=== PATIENT | female | born 1940 | race Caucasian/White ===

== ENCOUNTER 2017-11-21 08:42 | Emergency (ER) | payer MEDICARE, BC ==
--- NOTE | 2017-11-21 09:15 | ED ---
GI/ HPI - HPI Summary HPI Summary: This is Keturah Miranda documenting for attending Dr. Katty Mcnamara MD. The patient is a 77 y/o F presenting to [facility] c/o bright red blood in stool this morning starting at 02:00. The blood was present in the form of clots. The only pain associated with the bleeding is mild LLQ pain. She has tested her stool with a cologuard kit, which had negative results. She denies hematuria, nausea, and vomiting. She last had a BM at 07:30. She denies use of blood thinners. She has not had diverticulitis in the past. He has hx of osteoarthritis, which she does not take medication for. - History of Current Complaint Chief Complaint: EDGIBleed Time Seen by Provider: 11/21/17 09:01 Stated Complaint: BLOODING URINE Hx Obtained From: Patient Onset/Duration: Started Hours Ago - at 02:00 this morning, Still Present Timing: Lasting Hours Severity: Moderate Current Severity: Moderate Pain Intensity: 0 Location of Pain: LLQ Associated Signs and Symptoms: Positive: Bright Red Blood w/Stool - in form of clots, Abdominal Pain - LLQ. Negative: Nausea, Vomiting, Hematuria Aggravating Factor(s): Nothing Alleviating Factor(s): Bowel Movements - Allergy/Home Medications Allergies/Adverse Reactions: Allergies Allergy/AdvReac Type Severity Reaction Status Date / Time acetaminophen Allergy See Comment Verified 11/21/17 09:27 aspirin Allergy Palpitation Verified 11/21/17 09:27 s Penicillins Allergy Hives Verified 11/21/17 09:27 Sulfa (Sulfonamide Allergy Swelling Verified 11/21/17 09:27 Antibiotics) PMH/Surg Hx/FS Hx/Imm Hx Endocrine/Hematology History: Denies: Hx Diabetes Cardiovascular History: Denies: Hx Hypertension, Hx Pacemaker/ICD History: Denies: Hx Renal Disease Musculoskeletal History: Reports: Other Musculoskeletal History - Osteoarthritis Denies: Hx Scoliosis Sensory History: Denies: Hx Hearing Aid Neurological History: Reports: Hx Headaches Denies: Other Neuro Impairments/Disorders Psychiatric History: Denies: Hx Panic Disorder - Surgical History Surgery Procedure, Year, and Place: HYSTERECTOMY 1970. CHOLEYSYSTECOMY 1999 Infectious Disease History: No Infectious Disease History: Denies: History Other Infectious Disease, Traveled Outside the [place] in Last 30 Days - Family History Known Family History: Positive: Cardiac Disease - father, Other - brother with pancreatic cancer - Social History Alcohol Use: None Substance Use Type: Reports: None Smoking Status (MU): Never Smoked Tobacco Review of Systems Positive: Abdominal Pain - LLQ, Other - bright red blood in stool. Negative: Vomiting, Nausea Negative: hematuria All Other Systems Reviewed And Are Negative: Yes Physical Exam - Summary Physical Exam Summary: GENERAL: Patient is a well developed and nourished female who is lying comfortable in the stretcher. Patient is not in any acute respiratory distress. HEAD AND FACE: Normocephalic EYES: PERRLA, EOMI x 2. EARS: Hearing grossly intact. MOUTH: Oropharynx within normal limits. NECK: Supple, trachea is midline, no adenopathy, no JVD, no carotid bruit. CHEST: Symmetric, no tenderness at palpation LUNGS: Clear to auscultation bilaterally. No wheezing or crackles. CVS: Regular rate and rhythm, S1 and S2 present, no murmurs or gallops appreciated. ABDOMEN: Soft. Tender to palpation in the LLQ. Bowel sounds are normal. No abdominal abnormal pulsations. RECTAL EXAM: No visible hemorrhoids. Dark red stool present per rectal. EXTREMITIES: Full ROM in all major joints, no edema, no cyanosis or clubbing. NEURO: Alert and oriented x 3. No acute neurological deficits. Speech is normal and follows commands. SKIN: Dry and warm Triage Information Reviewed: Yes Vital Signs On Initial Exam: Initial Vitals Temp Pulse Resp BP Pulse Ox 97.1 F 86 16 165/81 97 11/21/17 08:43 11/21/17 08:43 11/21/17 08:43 11/21/17 08:43 11/21/17 08:43 Vital Signs Reviewed: Yes Diagnostics - Vital Signs Vital Signs Temp Pulse Resp BP Pulse Ox 11/21/17 08:43 97.1 F 86 16 165/81 97 - Laboratory Result Diagrams: 11/21/17 09:22 11/21/17 09:22 Lab Statement: Any lab studies that have been ordered have been reviewed, and results considered in the medical decision making process. - CT Abd/Pel CT Interpretation: Positive (See Comments) - 1. The constellation of findings is most consistent with mild acute diverticulitis at the proximal sigmoid colon. Negative for resulting bowel obstruction or perienteric abscess. Follow- up after therapy warranted to assess for resolution and exclude an underlying neoplastic lesion. ED physician has reviewed this report. CT Interpretation Completed By: Radiologist Re-Evaluation - Re-Evaluation First Eval Re-Evaluation Time: 12:40 Change: Unchanged Comment: I spoke with the pt concerning lab results of positive C-diff and CT results of diverticulitis. Second Eval Re-Evaluation Time: 12:55 Change: Unchanged Comment: I spoke with the pt about being admitted to [facility]. I spoke with Dr. Samaniego who overlooked the pt's symptoms and workup, but said that the patient would be admitted for observation. She understands the need for admission but refuses to be admitted because she wants to be an inpatient. We discussed the concerns, but the pt is adamant that she doesn't want to stay. She promises to return to the ED if her symptoms worsen. She will be prescribed Flagil and Cipro and will follow up with her PCP. Pt is agreeable with this plan. GIGU Course/Dx - Course Course Of Treatment: The patient is a 77 y/o F presenting to [facility] c/o bright red blood in stool in the form of clots starting this morning at 02:00. She reports mild LLQ pain but no other associated pain. She denies hematuria, nausea , and vomiting. She does not use blood thinners and has not had diverticulitis in the past. Medications reviewed. Allergies noted. In the ED course, the pt was administered IV Omnipaque Contrast 98 ml, IV Protonix 40mg, IV Ns 0.9% 1000mls @ 1000mls/hr. Upon rectal exam, there is dark red stool present per rectal. Bloodwork shows low lymphocytes but white counts are normal. UA is negative. She is positive for C-difficile. CT Abd/Pel reveals acute diverticulitis. I offered the patient admission, however, patient asked me to find out if she would be observation versus inpatient because of insurnace issue. I spoke with the hospitalist, who overlooked her symptoms and workup and states that she would be here for observation but would be willing to admit her if she chooses. Patient understands the need for admission but denies admission because she wants to be an inpatient. Since her white count is normal, H&H is stable, and she is hemodynamically stable and well appearing, the pt will be discharged home with Cipro and Flagil prescription. She will follow up with her PCP and GI. Return precautions discussed. Pt is agreeable with this plan. - Diagnoses Provider Diagnoses: C. difficile colitis, Diverticulitis - Physician Notifications Discussed Care Of Patient With: Manoj Samaniego Time Discussed With Above Provider: 12:50 Instructed by Provider To: Other - Pt is able to fully admitted for observation if she is willing to be admitted. Discharge - Sign-Out/Discharge Documenting (check all that apply): Patient Departure - Pt will be admitted to [facility] for further care by Dr. Samaniego. - Discharge Plan Condition: Stable Disposition: ADMITTED TO [facility] Prescriptions: Ciprofloxacin TAB* [Cipro 500 MG TAB*] 500 mg PO BID 10 Days #20 tab metroNIDAZOLE [Flagyl] 500 mg PO TID 10 Days #30 tablet Ondansetron [Zofran Odt] 4 mg PO TID #12 tab.rapdis Patient Education Materials: Diverticulitis (ED), C Diff (Clostridium Difficile ) Infection (ED) Referrals: Jude Cheney MD [Primary Care Provider] - 2 Days Carisa Broussard DO [Doctor of Osteopathy] - 2 Days Additional Instructions: Please take medications as prescribed. Follow up with your primary care provider in 2-3 days. Follow up with Dr. Broussard, gastroenterology in 2-3 days. Return to the emergency department for any new or worsening symptoms. - Billing Disposition and Condition Condition: STABLE Disposition: Admitted to [facility]
[2017-11-21] MEDS ORDERED: Pantoprazole IV* 40 MG IV ONE (09:16)
[2017-11-21] MEDS ORDERED: NS 0.9% 1000 ML* 1,000 ML IV ONE (09:16)
--- OUTSIDE RECORDS SUMMARY | 2017-11-21 09:33 | XMS REPORT ---
:1940 External Reference #:[id number] Author Organization [employer] Address [address] [place] [address] [place] [address] Phone [phone] Care Team Providers Name Role Phone Jude Cheney MD Primary Care Physician Unavailable Payers Type Date Identification Numbers Payment Provider Subscriber Medicare Primary Effective: Policy Number: Medicare Sasha Marte 2006 [id number] PayID: [id number] [address] [place] [address] Medigap Part B Effective: 2012 Policy Number: [facility] Sasha Marte [id number] PayID: [id number] [address] [address] [place] [address] Medigap Part B Expires: 2012 Policy Number: [employer] Sasha Marte [id number] PayID: [id number] [address] [address] [place] [address] Problems Date Description Provider Status Onset: 10/26/2017 Localized, primary osteoarthritis of the Ines Arvizu M.D. Active pelvic region and thigh Family History Date Family Member(s) Problem(s) Comments General Heart Disease General Hypertension General Cancer General Lupus Social History Type Date Description Comments Lives With Spouse Occupation Retired ETOH Use Denies alcohol use Smoking Patient has never smoked Exercise Type/Frequency Exercises sporadically Allergies, Adverse Reactions, Alerts Date Description Reaction Status Severity Comments 05/20/2012 Adhesives sensitive skin red jose a active 05/20/2012 Sulfa rapid heart rate active 05/20/2012 Aspirin rapid heart rate active 05/20/2012 Penicillin hives active 10/26/2017 Tylenol active Medications Medication Date Status Form Strength Qnty SIG Indications Ordering Provider Meloxicam 10/27/19 Active Tablets 15mg 30tabs 1 by M25.552 Ines 18 mouth Janet Arvizu every day Coq10 With Active Capsules 100mg 1 by Unknown Fish Oil 00 mouth every day Medications Administered in Office Medication Date Status Form Strength Qnty SIG Indications Ordering Provider Depomedrol Administered Injection Ines 40MG 018 Janet Arvizu Vital Signs Date Vital Result Comment 10/30/2017 Height 61.5 inches 5'1.50" Weight 196.00 lb BP Systolic 136 mmHg BP Diastolic 72 mmHg Body Temperature 98.6 F BMI (Body Mass Index) 36.4 kg/m2 10/26/2017 Height 61.5 inches 5'1.50" Weight 196.00 lb Heart Rate 64 /min BP Systolic 160 mmHg BP Diastolic 84 mmHg BMI (Body Mass Index) 36.4 kg/m2 Results Test Date Test Result H/L Range Note Laboratory test finding 10/26/2017 Lyme Disease Serology Negative Negative 1 1 No evidence of antibodies to B. burgdorferi detected. False negative results may occur in recently infected patients (<=2 weeks) due to low or undetectable antibody levels to B. burgdorferi. If recent exposure is suspected, a second sample should be collected and tested in 2-4 weeks. Test Performed by: [facility] [address] [place] [address] Procedures Date CPT Code Description Status 05/26/2012 13817 ECHO Stress Test Incl Perf Contiuous ekg Monitoring Completed W/Phys Superv 05/20/2012 63348 EKG Tracing & Interpretation Completed Encounters Type Date Location Provider CPT E/M Dx Office Visit 10/26/2017 [facility] Ines Arvizu M.D. 11748 M25.552 2:00p [facility] [place] M16.12 Office Visit 05/31/2012 1:15p [facility], [address] 238.1 C.Beatriz Gonzales Office Visit 05/20/2012 1:00p [facility] [address] 794.31 Jayesh Gonzales 272.0 Office Visit 05/17/2012 3:00p [facility] [address] 238.1 [place] Gonzales Plan of Care Future Appointment(s):11/11/2017 8:30 am - Ines Arvizu M.D. at [facility]
--- OUTSIDE RECORDS SUMMARY | 2017-11-21 09:33 | XMS REPORT ---
:1940 External Reference #:[id number] Author Organization [employer] Address [address] [place] [address] [place] [address] Phone [phone] Care Team Providers Name Role Phone Jude Cheney MD Primary Care Physician Unavailable Payers Type Date Identification Numbers Payment Provider Subscriber Medicare Primary Effective: Policy Number: Medicare Sasha Marte 2006 [id number] PayID: [id number] [address] [place] [address] Medigap Part B Effective: 2012 Policy Number: [facility] Sasha Marte [id number] PayID: [id number] [address] [address] [place] [address] Medigap Part B Expires: 2012 Policy Number: [employer] Sasha aMrte [id number] PayID: [id number] [address] [address] [place] [address] Problems Date Description Provider Status Onset: 10/26/2017 Localized, primary osteoarthritis of the Ines Arvizu M.D. Active pelvic region and thigh Family History Date Family Member(s) Problem(s) Comments General Heart Disease General Hypertension General Cancer General Lupus Social History Type Date Description Comments Marital Status Lives With Spouse Occupation Retired ETOH Use [...] Arvizu Vital Signs Date Vital Result Comment 11/11/2017 Height 61.5 inches 5'1.50" Heart Rate 72 /min BP Systolic Sitting 142 mmHg BP Diastolic Sitting 78 mmHg Respiratory Rate 16 /min Body Temperature 98.3 F Pain Level 7 intermittent 10/30/2017 Height 61.5 inches 5'1.50" Weight 196.00 [...] tested in 2-4 weeks. Test Performed by: [facility] [address] [place] [address] Procedures Date CPT Code Description Status 05/26/2012 46383 ECHO Stress Test Incl Perf Contiuous ekg Monitoring Completed W/Phys Superv 05/20/2012 77403 EKG Tracing & Interpretation Completed Encounters Type Date Location Provider CPT E/M Dx Office Visit 10/26/2017 [facility] Ines Arvizu M.D. 71652 M25.552 2:00p [facility] [place] M16.12 Office Visit 05/31/2012 1:15p [facility], [address] 238.1 CKatie Gonzales Office Visit 05/20/2012 1:00p [facility], [address] 794.31 Jayesh Gonzales 272.0 Office Visit 05/17/2012 3:00p [facility], [address] 238.1 [place] Gonzales Plan of Care Future Appointment(s):12/23/2017 8:15 am - Ines Arvizu M.D. at [facility]/11/2017 - Ines Arvizu M.D.M25.552 Pain in left hipNew Therapy:Physical TherapyFollow up:Follow up: 6 cakdgP93.12 Unilateral primary osteoarthritis, left hipG57.02 Lesion of sciatic nerve, left lower limb
--- OUTSIDE RECORDS SUMMARY | 2017-11-21 09:33 | XMS REPORT ---
:1940 External Reference #:[id number] Author Organization [employer] Address [address] [place] [address] Phone [phone] Care Team Providers Name Role Phone Jude Cheney MD Primary Care Physician Unavailable Payers Type Date Identification Numbers Payment Provider Subscriber Medicare Primary Effective: Policy Number: Medicare Sasha Marte 2005 [id number] PayID: [id number] [address] [place] [address] Medigap Part B Effective: 2012 Policy Number: [facility] Sasha Marte [id number] PayID: [id number] [address] [address] [place] [address] Medigap Part B Expires: 2012 Policy Number: [employer] Sasha Marte [id number] PayID: [id number] [address] [address] [place] [address] Problems Date Description Provider Status Onset: 10/26/2017 [...] 15mg 30tabs 1 by M25.552 Ines 18 lizette Arvizu M.D. every day Coq10 With Active Capsules 100mg 1 by Unknown Fish Oil 00 mouth every day Vital Signs Date Vital Result Comment 10/26/2017 Height 61.5 inches 5'1.50" Weight 196.00 lb Heart Rate 64 /min BP Systolic 160 mmHg BP Diastolic 84 mmHg BMI (Body Mass Index) 36.4 kg/m2 Results Description No Information Procedures Date CPT Code Description Status 05/26/2012 14316 ECHO Stress Test Incl Perf Contiuous ekg Monitoring Completed W/Phys Superv 05/20/2012 61135 EKG Tracing & Interpretation Completed Encounters Type Date Location Provider CPT E/M Dx Office Visit 10/26/2017 [facility] Ines Arvizu M.D. 95050 M25.552 2:00p [facility] [place] M16.12 Office Visit 05/31/2012 1:15p [facility], [address] 238.1 Kenia Gonzales Office Visit 05/20/2012 1:00p [facility], [address] 794.31 Jayehs Gonzales 272.0 Office Visit 05/17/2012 3:00p [facility], [address] 238.1 Kenia Gonzales Plan of Care Future Appointment(s):10/30/2017 3:45 pm - Ines Arvizu M.D. at [facility]/26/2017 - Ines Arvizu M.D.M25.552 Pain in left hipNew Medication:Meloxicam 15 mgNew Labs:Lyme Disease SerologyFollow up:Follow up: 3:45 for L hip inj under US with Dr. ArvizuM16.12 Unilateral primary osteoarthritis, left hip
[2017-11-21 09:34] LABS: ABS Basophils 0 10^3/ul (0-0.2); ABS Eosinophils 0.1 10^3/ul (0-0.6); ABS Lymphocytes 1.1 10^3/ul (1.0-4.8); ABS Monocytes 0.7 10^3/ul (0-0.8); ABS Neutrophils 5.7 10^3/ul (1.5-7.7); ABS Nucleated RBC 0 10^3/ul; Eosinophil % 1.5 % (0-6); Hematocrit 42 % (35-47); Lymphocyte % 14.1 % (25-47); Mean Corpuscular HGB Conc 33 g/dl (31-36); Mean Corpuscular Hemoglobin 29 pg (27-31); Mean Corpuscular Volume 87 fL (80-97); Nucleated Red Blood Cells % 0.1; Platelet Count 231 10^3/ul (150-450); Red Blood Count 4.85 10^6/ul (4.00-5.40); Red Cell Distribution Width 15 % (10.5-15); White Blood Count 7.5 10^3/ul (3.5-10.8)
[2017-11-21 09:43] LABS: INR 0.99 (0.77-1.02)
[2017-11-21 09:51] LABS: EGFR Non-African American 75.1 (>60)
[2017-11-21 10:45] LABS: Urine Appearance Clear; Urine Blood Negative (Negative); Urine Color Yellow; Urine Ketones Negative (Negative); Urine Protein Negative (Negative); Urine Red Blood Cell Trace(0-2/hpf) (Absent); Urine Specific Gravity 1.009 (1.010-1.030); Urine Urobilinogen Negative (Negative); Urine White Blood Cell 1+(6-10/hpf) (Absent)
[2017-11-21] MEDS ORDERED: Iohexol 300* (CONTRAST) 10 ML SDV IV ONE (11:29)
--- NOTE | 2017-11-21 12:35 | RAD ---
INDICATION: Blood in stool. LEFT lower quadrant pain. COMPARISON: August 10, 2013 ultrasound. TECHNIQUE: Multidetector CT images were obtained from the lung bases to the ischial tuberosities with 98 mL Omnipaque 300 IV and oral contrast. Multiplanar reformation. REPORT: Minimal bibasilar subsegmental atelectasis. Negative for pleural effusions. Upper normal heart size. Negative for pericardial effusion. Post cholecystectomy. Negative for biliary dilatation. Unremarkable liver, pancreas, spleen. Unremarkable upper GI and small bowel. Unremarkable diminutive appendix. Mild colonic diverticulosis. Mild focal mural thickening of the antimesenteric margin of the proximal sigmoid colon with mild perienteric inflammatory change most suggestive of acute diverticulitis. Negative for resulting bowel obstruction. Negative for perienteric abscess. Negative for ascites, free air, hernias. Thickening of the bilateral adrenal glands most consistent with hyperplasia. 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 Symmetric nephrograms and pyelograms. 0.9 cm hypodense cortical lesion at the midpole the LEFT kidney is too small to accurately characterize with contrast-enhanced CT. Parapelvic cysts at the RIGHT kidney. Unremarkable nondilated ureters and distended urinary bladder. Post hysterectomy. Unremarkable adnexal regions. Negative for lymphadenopathy. Normal diameter abdominal aorta and iliac arteries with mild calcific plaque. Physiologic distention of the IVC. Negative for suspicious osseous lesions or fracture. Lumbar sacral spine degenerative spondylosis and facet joint osteoarthritis. IMPRESSION: #. The constellation of findings is most consistent with mild acute diverticulitis at the proximal sigmoid colon. Negative for resulting bowel obstruction or perienteric abscess. Follow-up after therapy warranted to assess for resolution and exclude an underlying neoplastic lesion.
[2017-11-21] MEDS ORDERED: metroNIDAZOLE TAB* 250 MG PO ONE (12:58)
[2017-11-21] MEDS ORDERED: Ciprofloxacin TAB* 500 MG PO ONE (12:58)
[2017-11-21] MEDS ORDERED: Ondansetron ODT TAB* 4 MG PO ONE (12:59)
[2017-11-21 13:24] VITALS: BP 147/86
--- NOTE | 2017-11-22 13:42 | ED ---
Progress - Progress Note Progress Note: Patient's final stool cultures are positive for Clostridium difficile. Patient was diagnosed with this at discharge and treated with Flagyl. No change in treatment at this time. Re-Evaluation - Re-Evaluation First Eval Re-Evaluation Time: 12:40 Change: Unchanged Comment: I spoke with the pt concerning lab results of positive C-diff and CT results of diverticulitis. Second Eval Re-Evaluation Time: 12:55 Change: Unchanged Comment: I spoke with the pt about being admitted to [facility]. I spoke with Dr. Samaniego who overlooked the pt's symptoms and workup, but said that the patient would be admitted for observation. She understands the need for admission but refuses to be admitted because she wants to be an inpatient. We discussed the concerns, but the pt is adamant that she doesn't want to stay. She promises to return to the ED if her symptoms worsen. She will be prescribed Flagil and Cipro and will follow up with her PCP. Pt is agreeable with this plan. Course/Dx - Course Course Of Treatment: The patient is a 77 y/o F presenting to [facility] c/o bright red blood in stool in the form of clots starting this morning at 02:00. She reports mild LLQ pain but no other associated pain. She denies hematuria, nausea , and vomiting. She does not use blood thinners and has not had diverticulitis in the past. Medications reviewed. Allergies noted. In the ED course, the pt was administered IV Omnipaque Contrast 98 ml, IV Protonix 40mg, IV Ns 0.9% 1000mls @ 1000mls/hr. Upon rectal exam, there is dark red stool present per rectal. Bloodwork shows low lymphocytes but white counts are normal. UA is negative. She is positive for C-difficile. CT Abd/Pel reveals acute diverticulitis. I offered the patient admission, however, patient asked me to find out if she would be observation versus inpatient because of insurnace issue. I spoke with the hospitalist, who overlooked her symptoms and workup and states that she would be here for observation but would be willing to admit her if she chooses. Patient understands the need for admission but denies admission because she wants to be an inpatient. Since her white count is normal, H&H is stable, and she is hemodynamically stable and well appearing, the pt will be discharged home with Cipro and Flagil prescription. She will follow up with her PCP and GI. Return precautions discussed. Pt is agreeable with this plan. - Diagnoses Provider Diagnoses: C. difficile colitis, Diverticulitis - Provider Notifications Time Discussed With Above Provider: 12:50 Instructed by Provider To: Other - Pt is able to fully admitted for observation if she is willing to be admitted. Discharge - Sign-Out/Discharge Documenting (check all that apply): Post-Discharge Follow Up - Discharge Plan Condition: Stable Disposition: ADMITTED TO [facility] Prescriptions: Ciprofloxacin TAB* [Cipro 500 MG TAB*] 500 mg PO BID 10 Days #20 tab metroNIDAZOLE [Flagyl] 500 mg PO TID 10 Days #30 tablet Ondansetron [Zofran Odt] 4 mg PO TID #12 tab.rapdis Patient Education Materials: Diverticulitis (ED), C Diff (Clostridium Difficile ) Infection (ED) Referrals: Carisa Broussard DO [Doctor of Osteopathy] - 2 Days Jude Cheney MD [Primary Care Provider] - 2 Days Additional Instructions: Please take medications as prescribed. Follow up with your primary care provider in 2-3 days. Follow up with Dr. Broussard, gastroenterology in 2-3 days. Return to the emergency department for any new or worsening symptoms. - Billing Disposition and Condition Condition: STABLE Disposition: Admitted to [facility]
--- NOTE | 2017-11-23 16:32 | ED ---
Progress - Progress Note Progress Note: Patient's final stool cultures are positive for Clostridium difficile. Patient was diagnosed with this at discharge and treated with Flagyl. No change in treatment at this time. UPDATE: Patient's preliminary urine culture reveals greater than 100,000 enterococcus A Baugh. Patient was started on Cipro and Flagyl as mentioned above. Final results pending. Re-Evaluation - Re-Evaluation First Eval Re-Evaluation Time: 12:40 Change: Unchanged Comment: I spoke with the pt concerning lab results of positive C-diff and CT results of diverticulitis. Second Eval Re-Evaluation Time: 12:55 Change: Unchanged Comment: I spoke with the pt about being admitted to [facility]. I spoke with Dr. Samaniego who overlooked the pt's symptoms and workup, but said that the patient would be admitted for observation. She understands the need for admission but refuses to be admitted because she wants to be an inpatient. We discussed the concerns, but the pt is adamant that she doesn't want to stay. She promises to return to the ED if her symptoms worsen. She will be prescribed Flagil and Cipro and will follow up with her PCP. Pt is agreeable with this plan. Course/Dx - Course Course Of Treatment: The patient is a 77 y/o F presenting to [facility] c/o bright red blood in stool in the form of clots starting this morning at 02:00. She reports mild LLQ pain but no other associated pain. She denies hematuria, nausea , and vomiting. She does not use blood thinners and has not had diverticulitis in the past. Medications reviewed. Allergies noted. In the ED course, the pt was administered IV Omnipaque Contrast 98 ml, IV Protonix 40mg, IV Ns 0.9% 1000mls @ 1000mls/hr. Upon rectal exam, there is dark red stool present per rectal. Bloodwork shows low lymphocytes but white counts are normal. UA is negative. She is positive for C-difficile. CT Abd/Pel reveals acute diverticulitis. I offered the patient admission, however, patient asked me to find out if she would be observation versus inpatient because of insurnace issue. I spoke with the hospitalist, who overlooked her symptoms and workup and states that she would be here for observation but would be willing to admit her if she chooses. Patient understands the need for admission but denies admission because she wants to be an inpatient. Since her white count is normal, H&H is stable, and she is hemodynamically stable and well appearing, the pt will be discharged home with Cipro and Flagil prescription. She will follow up with her PCP and GI. Return precautions discussed. Pt is agreeable with this plan. - Diagnoses Provider Diagnoses: C. difficile colitis, Diverticulitis - Provider Notifications Time Discussed With Above Provider: 12:50 Instructed by Provider To: Other - Pt is able to fully admitted for observation if she is willing to be admitted. Discharge - Sign-Out/Discharge Documenting (check all that apply): Post-Discharge Follow Up - Discharge Plan Condition: Stable Disposition: ADMITTED TO [facility] Prescriptions: Ciprofloxacin TAB* [Cipro 500 MG TAB*] 500 mg PO BID 10 Days #20 tab metroNIDAZOLE [Flagyl] 500 mg PO TID 10 Days #30 tablet Ondansetron [Zofran Odt] 4 mg PO TID #12 tab.rapdis Patient Education Materials: Diverticulitis (ED), C Diff (Clostridium Difficile ) Infection (ED) Referrals: Carisa Broussard DO [Doctor of Osteopathy] - 2 Days Jude Cheney MD [Primary Care Provider] - 2 Days Additional Instructions: Please take medications as prescribed. Follow up with your primary care provider in 2-3 days. Follow up with Dr. Broussard, gastroenterology in 2-3 days. Return to the emergency department for any new or worsening symptoms. - Billing Disposition and Condition Condition: STABLE Disposition: Admitted to [facility]
--- NOTE | 2017-11-24 06:42 | PN ---
Progress Note - Progress Note Date of Service: 11/21/17 Note: Final urine culture growing >100,000 enterococcus faecalis. Pt. treated with Cipro which is susceptible. No change in treatment needed at this time.
== END 2017-11-21 13:22 | disposition short-term general hospital (02) ==
LOC: ED 08:42
DX: A04.72 Enterocolitis due to Clostridium difficile, not specified as recurrent (principal); K57.92 Diverticulitis of intestine, part unspecified, without perforation or abscess without bleeding; Z88.6 Allergy status to analgesic agent; Z88.0 Allergy status to penicillin; Z88.2 Allergy status to sulfonamides
CPT/HCPCS: 36415; 74177; 80053; 81003; 81015; 82272; 83605; 83690; 85025; 85610; 85730; 86850; 86900; 86901; 87045; 87046; 87077; 87086; 87186; 87493; 87899; 96360; 99283; A9270-GY; Q9967

== ENCOUNTER 2017-11-28 14:41 | Inpatient (IN) | payer MEDICARE, BC ==
--- NOTE | 2017-11-28 16:06 | ED ---
Abdominal Pain/Female - HPI Summary HPI Summary: This is sunita Machado documenting for attending Dr. Edilberto Gonzales This patient is a 77 year old F presenting to [facility] accompanied by her with a chief complaint of abd pain since 11/21/17, much worse starting 0200 this AM. She endorses N/V, davi stool, fever, severe pain in LLQ and RLQ. PMHx diverticulitis dx 1 week ago (11/21/17) during last ED visit. - History of Current Complaint Chief Complaint: EDAbdPain Stated Complaint: VOMITING/ABD PAIN Time Seen by Provider: 11/28/17 15:39 Hx Obtained From: Patient Onset/Duration: Lasting Weeks, Still Present Timing: Constant Severity Initially: Moderate Severity Currently: Moderate Pain Intensity: 7 Pain Scale Used: 0-10 Numeric Associated Signs and Symptoms: Positive: Constipation, Nausea, Vomiting. Negative: Fever Allergies/Adverse Reactions: Allergies Allergy/AdvReac Type Severity Reaction Status Date / Time acetaminophen Allergy See Comment Verified 11/28/17 16:58 aspirin Allergy Palpitation Verified 11/28/17 16:58 s Penicillins Allergy Hives Verified 11/28/17 16:58 Sulfa (Sulfonamide Allergy Swelling Verified 11/28/17 16:58 Antibiotics) PMH/Surg Hx/FS Hx/Imm Hx Endocrine/Hematology History: Denies: Hx Diabetes Cardiovascular History: Denies: Hx Hypertension, Hx Pacemaker/ICD History: Denies: Hx Renal Disease Musculoskeletal History: Reports: Other Musculoskeletal History - Osteoarthritis Denies: Hx Scoliosis Sensory History: Denies: Hx Hearing Aid Neurological History: Reports: Hx Headaches Denies: Other Neuro Impairments/Disorders Psychiatric History: Denies: Hx Panic Disorder - Surgical History Surgery Procedure, Year, and Place: HYSTERECTOMY 1970. CHOLEYSYSTECOMY 1999 Infectious Disease History: No Infectious Disease History: Denies: History Other Infectious Disease, Traveled Outside the [place] in Last 30 Days - Family History Known Family History: Positive: Cardiac Disease - father, Other - brother with pancreatic cancer - Social History Alcohol Use: None Substance Use Type: Reports: None Smoking Status (MU): Never Smoked Tobacco Review of Systems Negative: Fever Positive: Abdominal Pain, Vomiting, Nausea, Other - constipation All Other Systems Reviewed And Are Negative: Yes Physical Exam - Summary Physical Exam Summary: Appearance: Well appearing, no pain distress Skin: warm, dry, reflects adequate perfusion Head/face: normal Eyes: EOMI, OLYA ENT: normal Neck: supple, non-tender Respiratory: CTA, breath sounds present Cardiovascular: RRR, pulses symmetrical Abdomen: RLQ, LLQ tenderness, soft Bowel: present Musculoskeletal: normal, strength/ROM intact Neuro: normal, sensory motor intact, A&Ox3 Triage Information Reviewed: Yes Vital Signs On Initial Exam: Initial Vitals Temp Pulse Resp BP Pulse Ox 98.3 F 96 15 179/100 94 11/28/17 14:47 11/28/17 14:47 11/28/17 14:47 11/28/17 14:47 11/28/17 14:47 Vital Signs Reviewed: Yes Diagnostics - Vital Signs Vital Signs Temp Pulse Resp BP Pulse Ox 11/28/17 14:47 98.3 F 96 15 179/100 94 - Laboratory Result Diagrams: 11/29/17 05:51 11/29/17 05:51 Lab Statement: Any lab studies that have been ordered have been reviewed, and results considered in the medical decision making process. Abdominal Pain Fem Course/Dx - Course Course Of Treatment: A 77-year-old F presents to the ED with a CC of LLQ and RLQ abd pain for 1 week. (+) N/V, fever, "davi" stool. PMHx diverticulitis dx 1 week ago, on abx, discontinued because of concern she would vomit them up/ weren't working. A CT A/P reveals. In the ED course, pt was given zofran, nl saline, morphine. - Diagnoses Differential Diagnosis: Positive: Appendicitis, Diverticulitis, Pancreatitis, Renal Colic, Urinary Tract Infection Provider Diagnoses: Abdominal pain, Diverticulitis Discharge - Sign-Out/Discharge Documenting (check all that apply): Sign-Out Patient Signing out patient TO: Eder De Leon - CT A/P - Discharge Plan Disposition: ADMITTED TO [facility] - Billing Disposition and Condition Disposition: Admitted to [facility]
[2017-11-28] MEDS ORDERED: NS 0.9% 1000 ML* 1,000 ML IV ONE (16:09)
[2017-11-28] MEDS ORDERED: Ondansetron INJ* 2 MG/ML VIAL IV ONE (16:12)
[2017-11-28] MEDS ORDERED: Morphine VIAL* 4 MG/ML VIAL (1 ml vial) IV ONE ×3 (16:48→21:01)
[2017-11-28] MEDS ORDERED: Morphine INJ* 2 MG/ML 1 ML SYRINGE (TWO MG - NEW SYRINGE VERSION) ONE (16:51)
[2017-11-28] MEDS: Morphine INJ* 2 MG/ML 1 ML SYRINGE (TWO MG - NEW SYRINGE VERSION) IV ONE ×3 (16:53→20:47)
[2017-11-28 16:56] LABS: ABS Basophils 0 10^3/ul (0-0.2); ABS Eosinophils 0 10^3/ul (0-0.6); ABS Lymphocytes 0.7 10^3/ul (1.0-4.8); ABS Monocytes 0.9 10^3/ul (0-0.8); ABS Neutrophils 10.6 10^3/ul (1.5-7.7); ABS Nucleated RBC 0 10^3/ul; Eosinophil % 0.1 % (0-6); Hematocrit 45 % (35-47); Hemoglobin 14.9 g/dl (12.0-16.0); Lymphocyte % 5.7 % (25-47); Mean Corpuscular HGB Conc 33 g/dl (31-36); Mean Corpuscular Hemoglobin 29 pg (27-31); Mean Corpuscular Volume 87 fL (80-97); Mean Platelet Volume 7.7 um3 (7.4-10.4); Nucleated Red Blood Cells % 0.2; Platelet Count 266 10^3/ul (150-450); Red Blood Count 5.18 10^6/ul (4.00-5.40); Red Cell Distribution Width 15 % (10.5-15); White Blood Count 12.3 10^3/ul (3.5-10.8)
[2017-11-28 17:20] LABS: EGFR Non-African American 42.9 (>60)
[2017-11-28] MEDS ORDERED: Iodixanol* (CONTRAST) 320 MG/ML 100 ML SDV IV ONE (18:34)
--- NOTE | 2017-11-28 19:18 | RAD ---
INDICATION: Abdominal pain. Diagnosis of mild acute diverticulitis 1 week ago. COMPARISON: CT abdomen pelvis November 21, 2017 TECHNIQUE: Axial source images were obtained from the hemidiaphragms to the symphysis pubis following administration of oral and intravenous contrast. 100 mL Visipaque 320 was utilized. Coronal and sagittal reconstructed images were acquired. Lung bases: The lung bases are clear. Liver: The liver is normal in size. There are no masses. There is no ductal dilatation. Gallbladder: Cholecystectomy. Spleen: The spleen is normal in size. There are no masses. Pancreas: There is no focal pancreatic mass or ductal dilatation. Adrenal glands: There are benign bilateral adrenal lesions most consistent with hyperplasia or adenomas. Kidneys: The left kidney is unremarkable. There is right-sided hydronephrosis and hydroureter with a 2 mm calculus at the UVJ. There is moderate right-sided perinephric stranding. Adenopathy: There is no evidence of adenopathy by size criteria. Fluid collections: There are no other fluid collections. Vessels:There are no significant atherosclerotic changes involving the aorta. There is no focal aneurysm. The iliac vessels are normal in caliber. The IVC appears normal. GI tract: There are no acute CT bowel findings. There is no obstruction. The stomach and small bowel appear normal. There are diverticula of the sigmoid colon. There are no CT findings of acute diverticulitis Pelvic organs: There is hysterectomy. There is no adnexal mass. Bladder: There are no bladder masses. Abdominal and pelvic soft tissues: The extraperitoneal abdominal and pelvic soft tissues appear normal.. Osseous structures: There are no acute osseous findings. Other: None IMPRESSION: 1. Moderate right-sided hydronephrosis and hydroureter with perinephric stranding secondary to a 2 mm right UVJ calculus. 2. Diverticula of the sigmoid colon without CT findings of acute diverticulitis. 3. Hysterectomy. Cholecystectomy.
--- NOTE | 2017-11-28 19:20 | UC ---
- Progress Note Progress Note: This is sunita Miranda documenting for attending Dr. Eder De Leon MD. This patient was signed out from Dr. Casanova, pending disposition, awaiting CT Abd/Pel. CT Abd /Pel reveals right-sided hydronephrosis and hydroureter and diverticula. The patients diagnosis is diverticulitis and abdominal pain. I consulted with Dr. Wan, hospitalist, and Dr. Carrizales, urologist, who agreed to admit the patient to [facility]. Patient is agreeable with this plan. - Results/Orders Results/Orders: CT Abd/Pel: 1. Moderate right-sided hydronephrosis and hydroureter with perinephric stranding secondary to a 2 mm right UVJ calculus. 2. Diverticula of the sigmoid colon without CT findings of acute diverticulitis. 3. Hysterectomy. Cholecystectomy. ED physician has reviewed this report. Course/Dx - Diagnoses Provider Diagnoses: Abdominal pain, Diverticulitis - Provider Notifications Discussed Care Of Patient With: Chase Wan - hospitalist Time Discussed With Above Provider: 19:50 Instructed by Provider To: Admit As Inpatient - I also spoke to Dr. Carrizales at 20:05 who agreed to admit patient under Dr. Wan. Discharge - Sign-Out/Discharge Documenting (check all that apply): Patient Departure - Pt will be admitted to [facility] Receiving Sign-Out Receiving patient FROM: Vincent Casanova - Patient was a signout pending disposition, awaiting CT Abd/Pel. - Discharge Plan Disposition: ADMITTED TO [facility] - Billing Disposition and Condition Disposition: Admitted to [facility]
[2017-11-28 21:28] LABS: INR 1.13 (0.77-1.02)
[2017-11-28] MEDS ORDERED: Ondansetron INJ* 2 MG/ML VIAL IV PRN (22:18)
[2017-11-28] MEDS ORDERED: Tamsulosin CAP* 0.4 MG PO ONE (22:18)
[2017-11-28 22:24] LABS: Urine Appearance Clear; Urine Blood 1+ (Negative); Urine Color Yellow; Urine Ketones Trace (Negative); Urine Protein Negative (Negative); Urine Red Blood Cell 1+(3-5/hpf) (Absent); Urine Urobilinogen Negative (Negative); Urine White Blood Cell Absent (Absent)
[2017-11-28] MEDS ORDERED: oxyCODONE TAB* 5 MG TAB PO PRN (22:24)
[2017-11-28] MEDS ORDERED: Morphine INJ* 2 MG/ML 1 ML SYRINGE (TWO MG - NEW SYRINGE VERSION) IV PRN (22:24)
[2017-11-28] MEDS: NS 0.9% 1000 ML* 1,000 ML IV SCH (23:09)
[2017-11-29] MEDS: cefTRIAXone(*) 1 GM in NS 0.9% 50 ML* 50 ML IVPB SCH ×2 (00:14→23:30)
[2017-11-29] MEDS: Vancomycin CAP* 125 MG CAP PO SCH ×5 (00:20→20:58)
--- NOTE | 2017-11-29 02:43 | HP ---
CC: Dr. Jude Cheney; Dr. Mahesh Carrizales ADMISSION HISTORY AND PHYSICAL: DATE OF ADMISSION: 11/28/17 PRIMARY CARE PROVIDER: Dr. Jude Cheney. MY ATTENDING WHILE IN THE HOSPITAL: Dr. Chase Wan.* (DICTATED BY CASSIDY KING) CONSULTING UROLOGIST: Dr. Mahesh Carrizales. CHIEF COMPLAINT: Nine day of diarrhea, abdominal pain. HISTORY OF PRESENT ILLNESS: Ms. Polo is a 77-year-old female with past medical history significant only for left hip osteoarthritis and recently diagnosed diverticulitis, who initially presented to emergency department 9 days ago after 2 days of loose bloody bowel movements with abdominal pain. The patient came to the emergency department and had a CT scan of her abdomen, which showed diverticulitis as well as a positive test for stool PCR for Clostridium difficile. The patient was started on ciprofloxacin and metronidazole and was sent home. The patient had at that point refused admission for financial reasons. The patient had continued abdominal pain up to 02/10 between when she was discharged and when she came back. The patient came back today because at approximately 2 a.m., she started having severe nausea and vomiting with continued pain in her abdomen with new pain in her right flank radiating down into her groin. The patient had a slightly elevated temperature of 100.1. The patient had no chills. The patient never had pain like this before. The patient has been having approximately 6 loose stools daily without any more blood in them since she left the hospital. The patient took ciprofloxacin and metronidazole up until today. The patient stopped them today due to nausea and believes that she would not be able to tolerate them. The patient had 2 UTIs in the very remote past, has no other recent UTIs, no history of kidney stones, no other significant past medical history. The patient denies chest pain, shortness of breath, new weakness. The patient feels fatigued. The patient has lost 5 pounds since she was previously in the hospital. The patient's most recent antibiotics was a doxycycline course as prophylactic treatment for unconfirmed Lyme disease after a tick bite in August 2016. The patient in the emergency department today had a CT scan, which showed a new kidney stone, 2 mm, causing hydronephrosis on the right side, with resolution of her diverticulitis. The patient was discussed with Dr Carrizales of Urology, who states that this stone is likely to pass on its own and that the patient will be safe to be admitted to the hospital and that he would assist with urologic procedures as needed. We are asked to evaluate for admission to the hospital due to kidney stone with hydronephrosis as well as concern for ongoing Clostridium difficile infection. PAST MEDICAL HISTORY: Left hip osteoarthritis, recently diagnosed C. diff, recently diagnosed diverticulitis. PAST SURGICAL HISTORY: Hysterectomy and cholecystectomy. MEDICATIONS: 1. CoQ10 50 g 1 tab p.o. daily. 2. Ciprofloxacin 500 mg p.o. b.i.d., stopped today. 3. Metronidazole 500 mg p.o. t.i.d., stopped today. 4. Zofran 4 mg p.o. t.i.d. ALLERGIES: PENICILLIN, ASPIRIN, TYLENOL, SULFA. FAMILY HISTORY: The patient's father of [place] with sudden cardiac . The patient's mother had of a brain aneurysm. The patient has 4 brothers, who all of various cancers including mesothelioma, stomach cancer, prostate cancer, and pancreatic cancer. The patient's other siblings are alive and well. The patient has 3 living brothers and 1 living sister. The patient has 2 children. The patient's daughter had a brain tumor, which was removed and has epilepsy related to this. The patient's son is healthy. SOCIAL HISTORY: The patient never smoked, drink, use illicit drugs. 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 The patient is , lives with her , has 2 children. Her surrogate decision maker will be her , Neel Polo. REVIEW OF SYSTEMS: A 14-point review of systems was reviewed and is negative except as above in the HPI. PHYSICAL EXAMINATION GENERAL: The patient is a 77-year-old female, who appears her stated age and sitting comfortably in bed, in no acute distress. VITAL SIGNS: Temperature 98.3, pulse rate 96, respiratory rate 15, oxygen saturation 94% on room air, blood pressure 179/100. HEENT: Head normocephalic, atraumatic. Sclerae anicteric. No conjunctival injection. Nasal mucosa moist. Oral mucosa moist. No pharyngeal erythema, discharge, or exudate. NECK: Supple. Nontender. No lymphadenopathy. No carotid bruit auscultated. No JVD. RESPIRATORY: Clear to auscultation bilaterally. No wheezes, rales, or rhonchi. Good air exchange bilaterally. CARDIAC: Regular rate and rhythm. No clicks, murmurs, gallops, or rubs. Pulses are 2+ in the bilateral dorsalis pedis, posterior tibialis, and radial areas. ABDOMEN: Distended, tender to palpation throughout. No rebound, guarding, or hepatosplenomegaly. No abdominal bruits auscultated. No hepatojugular reflux. Hyperactive bowel sounds throughout. GENITOURINARY: Right-sided CVA tenderness, suprapubic tenderness. NEUROLOGIC: Cranial nerves II through XII intact. No focal deficits. Alert and oriented x3. PSYCHIATRIC: Pleasant and cooperative. SKIN: Clean, dry, and intact. No rash. LABORATORY DATA: White blood cell count 12.3, hemoglobin 14.9, hematocrit 45, platelet count 266. INR 1.13, APTT 25.7. Sodium 136, potassium 4.0, chloride 100, carbon dioxide 27, anion gap 9, BUN 13, creatinine of 1.22, glucose 129, lactic acid 1.1, calcium 8.9. Bilirubin 0.7, AST 28, ALT 27, alkaline phosphatase 73. CRP 18.97. Total protein 7.4, albumin 3.8, globulin 3.6, lipase 52. Urine, yellow, clear, trace ketones, 1+ blood, 1+ leukocyte esterase , red blood cells, urine squamous epithelial cells present, negative bacteria, glucose. STUDIES: Abdomen and pelvis CT read as moderate right-sided hydronephrosis and hydroureter, perinephric stranding secondary to 2 mm right UVJ calculus, diverticula of the sigmoid colon without CT finding of acute diverticulitis, hysterectomy, cholecystectomy. ASSESSMENT AND PLAN: Ms. Polo is a 77-year-old female with past medical history significant only for a left hip osteoarthritis, who presents to the emergency department for the second time in 2 weeks for abdominal pain at this time with worsening right-sided flank pain, found to have a new urinary calculus on CT scan with ongoing diarrhea multiple times a day with one documented elevated temperature, tachycardia, and elevated white blood cell count. The patient will be admitted to the hospital for supportive care while she passes her kidney stones as well as initiation of therapy for possible C. diff colitis. 1. Nephrolithiasis with hydronephrosis: This case has been discussed with Dr. Carrizales of Urology and he is confident that stone will pass on its own and is available for consult if needed. There is no indication for urgent stenting. The patient will have a repeat ultrasound of her bladder and kidneys in the morning. The patient possibly has a urinary tract infection. The patient recently completed a 6-day course of ciprofloxacin, but still has leukocyte esterase in her urine. The patient will be treated with ceftriaxone until she has a negative urine culture. The patient has been given a 1 L bolus of fluid in the emergency department and 100 mL of fluid an hour ongoing. The patient will be given tamsulosin to help facilitate passage of her stone as well as pain control. The patient will have additional pain control with morphine and oxycodone. The patient does not meet sepsis criteria. 2. Diarrhea, positive C. diff test: The patient has abdominal pain, elevated temperatures, elevated white blood cell count, and positive C. diff test. While it is not clear if the patient's diarrhea is caused by C. diff, we will initiate treatment with vancomycin at the therapeutic trial. If the patient improves, the patient likely should be continued. Infectious Disease consultation should be considered when available. 3. Hypertension: The patient will be started on tamsulosin, which may help moderately with her blood pressure. The patient's blood pressure is slightly elevated due to pain. We will not initiate antihypertensives at this time. It should be considered on an ongoing basis. 4. DVT prophylaxis. The patient is a high risk and will have heparin subcu as well as SCDs. 5. FEN: The patient will have a regular unrestricted diet as well as fluid as above. 6. Code status: The patient would like to be a full code. The patient's surrogate decision maker is her , Neel Polo, as above. 7. Disposition: The patient is admitted to observation. TIME SPENT: Approximately 60 minutes were spent on the admission, 30 of which was spent [id number] with the patient obtaining history and physical and discussing treatment plan. This plan has been discussed with my attending, Dr. Chase Wan, and he is in agreement. CASSIDY KING [id number]/[facility] #: [id number] CHRISSY
[2017-11-29] MEDS: Heparin VIAL(*) 5000 UNITS/ML VIAL (FIVE THOUSAND) SUBCUT SCH ×3 (05:45→20:59)
[2017-11-29 06:19] LABS: ABS Basophils 0 10^3/ul (0-0.2); ABS Eosinophils 0 10^3/ul (0-0.6); ABS Monocytes 1.1 10^3/ul (0-0.8); ABS Neutrophils 15.1 10^3/ul (1.5-7.7); ABS Nucleated RBC 0 10^3/ul; Eosinophil % 0 % (0-6); Hematocrit 42 % (35-47); Lymphocyte % 5.9 % (25-47); Mean Corpuscular HGB Conc 34 g/dl (31-36); Mean Corpuscular Hemoglobin 29 pg (27-31); Mean Corpuscular Volume 87 fL (80-97); Mean Platelet Volume 7.9 um3 (7.4-10.4); Nucleated Red Blood Cells % 0; Platelet Count 240 10^3/ul (150-450); Red Cell Distribution Width 15 % (10.5-15); White Blood Count 17.2 10^3/ul (3.5-10.8)
--- NOTE | 2017-11-29 12:53 | RAD ---
INDICATION: Evaluate degree of hydronephrosis COMPARISON: CT November 20, 2017 TECHNIQUE: Longitudinal and transverse scans of the right kidney were obtained. FINDINGS: Kidneys: The right kidney normal in size and echogenicity. There is mild right-sided hydronephrosis. No renal masses or calculi are seen The right kidney measures 11.4 x 6.0 x 6.2 cm. Other: There is a right ureteral jet IMPRESSION: MINOR RIGHT-SIDED HYDRONEPHROSIS. DOCUMENTATION OF RIGHT URETERAL JET
--- NOTE | 2017-11-29 15:16 | PN ---
Subjective Date of Service: 11/29/17 Interval History: HOSPITALIST PROGRESS NOTE Patient seen and examined at bedside. Care reviewed and d/w Carly Chu RN. She feels somewhat improved today. Still has frequent diarrhea and was incontinent earlier today, but N/V are improved and appetite has returned. Family History: Unchanged from Admission Social History: Unchanged from Admission Past Medical History: Unchanged from Admission Objective Active Medications: Heparin Sodium (Porcine) (Heparin Vial(*)) 5,000 units SUBCUT Q8HR [facility] Last Admin: 11/29/17 14:16 Dose: Not Given Sodium Chloride (Ns 0.9% 1000 Ml*) 1,000 mls @ 100 mls/hr IV PER RATE [facility] Last Admin: 11/28/17 23:09 Dose: 100 mls/hr Ceftriaxone Sodium 1 gm/ (Sodium Chloride) 50 mls @ 200 mls/hr IVPB Q24H [facility] Last Admin: 11/29/17 00:14 Dose: 200 mls/hr Morphine Sulfate (Morphine Inj ((Syringe))*) 2 mg IV Q4H PRN PRN Reason: PAIN - MILD Ondansetron HCl (Zofran Inj*) 4 mg IV Q6H PRN PRN Reason: NAUSEA Oxycodone HCl (Roxycodone Tab*) 5 mg PO Q6H PRN PRN Reason: PAIN Tamsulosin HCl (Flomax Cap*) 0.4 mg PO BEDTIME [facility] Vancomycin HCl (Vancomycin Cap*) 125 mg PO QID [facility] Last Admin: 11/29/17 14:14 Dose: 125 mg Vital Signs - 8 hr 11/29/17 11/29/17 07:20 11:43 Temperature 97.9 F 98.1 F Pulse Rate 94 94 Respiratory 16 18 Rate Blood Pressure 128/73 112/59 (mmHg) O2 Sat by Pulse 93 96 Oximetry Oxygen Devices in Use Now: Nasal Cannula - 2 liters Appearance: Pleasant elderly lady sitting up in a chair in NAD. Eyes: No Scleral Icterus Ears/Nose/Mouth/Throat: Mucous Membranes Moist Neck: Trachea Midline Respiratory: Symmetrical Chest Expansion and Respiratory Effort, Clear to Auscultation Cardiovascular: RRR - Normal S1 and S2 Abdominal: - - Soft, mild diffuse tenderness, NG, NR, BS+ and increased Neurological: Alert and Oriented x 3, NL Muscle Strength and Tone Result Diagrams: 11/29/17 05:51 11/29/17 05:51 Assess/Plan/Problems-Billing Assessment: Mrs Marte is a 77yo F with PMH of osteoarthritis, diverticulosis, who presented to ED with c/o abdominal pain and diarrhea, found to have possible C. diff colitis. - Patient Problems (1) Diarrhea Comment: - About 10 days ago patient developed painless hematochezia. Seen in ED and diagnosed with diverticulitis and C. diff, prescribed Cipro and Flagyl. CT showed mild proximal sigmoid diverticulitis. - Suspect her LGI bleed was diverticular in nature (as it is unusual for C. diff to cause bleeding), and her positive C. diff was likely colonization. - She initially had resolution of the bleeding and felt a little better, but then symptoms worsened again with frequent watery diarrhea with scant solid residue (described as "sand"), nausea, and vomiting yesterday. - She may have C diff induced diarrhea now, or these symptoms can also be associated with antibiotics side effect. Her WBC is elevated today, suggestive of infection. - Will continue PO Vancomycin and will request ID and GI consults. (2) Enterococcus UTI Comment: - Present on admission. - She denies urinary complaints at this time. - UA done 11/21 showed 1+ LE and 1+ WBC. Urine culture grew Enterococcus faecalis >100,000 pansensitive. Repeat urine shows no WBCs, but CT showed right sided moderate hydronephrosis with a 2mm calculus. - D/w Urology on admission and impression is stone will likely pass on its own. - F/u US done today shows mild right sided hydro with documented right ureteral jet and no stone seen, suggesting stone passed. - Will continue Ceftriaxone for now, but will d/c it if culture negative. - Continue Tamsulosin. (3) Hypomagnesemia Comment: - Replete. (4) DVT prophylaxis Comment: - SQ heparin. (5) Full code status Status and Disposition: Change to Inpatient.
[2017-11-29] MEDS ORDERED: Magnesium Sulfate 2 GM IV* 2 GM/50 ML BAG IVPB ONE (16:00)
[2017-11-29] MEDS: Tamsulosin CAP* 0.4 MG PO SCH (20:58)
[2017-11-30] MEDS: Heparin VIAL(*) 5000 UNITS/ML VIAL (FIVE THOUSAND) SUBCUT SCH ×3 (05:00→21:40)
[2017-11-30] MEDS: NS 0.9% 1000 ML* 1,000 ML IV SCH ×2 (05:02→16:09)
[2017-11-30 07:05] LABS: ABS Basophils 0 10^3/ul (0-0.2); ABS Eosinophils 0.1 10^3/ul (0-0.6); ABS Lymphocytes 1.2 10^3/ul (1.0-4.8); ABS Monocytes 0.9 10^3/ul (0-0.8); ABS Neutrophils 7.5 10^3/ul (1.5-7.7); ABS Nucleated RBC 0 10^3/ul; Eosinophil % 1.1 % (0-6); Hematocrit 35 % (35-47); Hemoglobin 11.9 g/dl (12.0-16.0); Lymphocyte % 12.4 % (25-47); Mean Corpuscular HGB Conc 34 g/dl (31-36); Mean Corpuscular Hemoglobin 30 pg (27-31); Mean Corpuscular Volume 86 fL (80-97); Nucleated Red Blood Cells % 0.1; Platelet Count 195 10^3/ul (150-450); Red Blood Count 4.06 10^6/ul (4.00-5.40); Red Cell Distribution Width 15 % (10.5-15); White Blood Count 9.8 10^3/ul (3.5-10.8)
[2017-11-30 07:18] LABS: EGFR Non-African American 91.9 (>60)
[2017-11-30] MEDS: Vancomycin CAP* 125 MG CAP PO SCH ×4 (08:22→21:41)
--- NOTE | 2017-11-30 12:56 | PN ---
Subjective Date of Service: 11/30/17 Interval History: HOSPITALIST PROGRESS NOTE Patient seen and examined at bedside. Care reviewed and d/w Justine Ball RN. She feels a little better today. Still has diarrhea, but abdominal pain is less intense. Appetite is good, no N/V. Family History: Unchanged from Admission Social History: Unchanged from Admission Past Medical History: Unchanged from Admission Objective Active Medications: Heparin Sodium (Porcine) (Heparin Vial(*)) 5,000 units SUBCUT Q8HR [facility] Last Admin: 11/30/17 12:05 Dose: Not Given Sodium Chloride (Ns 0.9% 1000 Ml*) 1,000 mls @ 100 mls/hr IV PER RATE [facility] Last Admin: 11/30/17 05:02 Dose: 100 mls/hr Morphine Sulfate (Morphine Inj ((Syringe))*) 2 mg IV Q4H PRN PRN Reason: PAIN - MILD Ondansetron HCl (Zofran Inj*) 4 mg IV Q6H PRN PRN Reason: NAUSEA Oxycodone HCl (Roxycodone Tab*) 5 mg PO Q6H PRN PRN Reason: PAIN Tamsulosin HCl (Flomax Cap*) 0.4 mg PO BEDTIME [facility] Last Admin: 11/29/17 20:58 Dose: 0.4 mg Vancomycin HCl (Vancomycin Cap*) 125 mg PO QID [facility] Last Admin: 11/30/17 12:09 Dose: 125 mg Vital Signs - 8 hr 11/30/17 11/30/17 07:15 08:00 Temperature 98.0 F Pulse Rate 79 Respiratory 18 16 Rate Blood Pressure 111/53 (mmHg) O2 Sat by Pulse 94 Oximetry Oxygen Devices in Use Now: None Appearance: Pleasant elderly lady sitting up in bed in NAD. Eyes: No Scleral Icterus Ears/Nose/Mouth/Throat: Mucous Membranes Moist Neck: Trachea Midline Respiratory: Symmetrical Chest Expansion and Respiratory Effort, Clear to Auscultation Cardiovascular: RRR - Normal S1 and S2 Abdominal: NL Sounds; No Tenderness; No Distention Neurological: Alert and Oriented x 3, NL Muscle Strength and Tone Result Diagrams: 11/30/17 06:22 11/30/17 06:22 Assess/Plan/Problems-Billing Assessment: Mrs Marte is a 77yo F with PMH of osteoarthritis, diverticulosis, who presented to ED with c/o abdominal pain and diarrhea, found to have possible C. diff colitis. - Patient Problems (1) Diarrhea Comment: - About 10 days ago patient developed painless hematochezia. Seen in ED and diagnosed with diverticulitis and C. diff, prescribed Cipro and Flagyl. CT showed mild proximal sigmoid diverticulitis. - Suspect her LGI bleed was diverticular in nature (as it is unusual for C. diff to cause bleeding), and her positive C. diff was likely colonization. - She initially had resolution of the bleeding and felt a little better, but then symptoms worsened again with frequent watery diarrhea with scant solid residue (described as "sand"), nausea, and vomiting yesterday. - She may have C diff induced diarrhea now, or these symptoms can also be associated with antibiotics side effect. Had WBC elevation suggestive of infection. - Continue PO Vancomycin. - Awaiting ID and GI consults. (2) Enterococcus UTI Comment: - Present on admission. - She denies urinary complaints at this time. - UA done 11/21 showed 1+ LE and 1+ WBC. Urine culture grew Enterococcus faecalis >100,000 pansensitive. Repeat urine shows no WBCs, but CT showed right sided moderate hydronephrosis with a 2mm calculus. - D/w Urology on admission and impression is stone will likely pass on its own. - F/u US done showed mild right sided hydro with documented right ureteral jet and no stone seen, suggesting stone passed. - Urine culture is negative now - will d/c Ceftriaxone. - Continue Tamsulosin. (3) Hypomagnesemia Comment: - Replete. (4) DVT prophylaxis Comment: - SQ heparin. (5) Full code status Status and Disposition: Inpatient.
--- NOTE | 2017-11-30 13:58 | CONS ---
CONSULTATION REPORT: DATE OF CONSULT: 11/30/17 REQUESTING PHYSICIAN: Dr. Molina. CONSULTING SERVICE: Infectious Disease. REASON FOR CONSULT: Diarrhea. IMPRESSION: 1. One week ago, painless hematochezia that included clots, resolved after about 2 days. In the meantime, had a Clostridium difficile PCR, which was positive. No preceding antibiotics, no diarrhea at that time when she started Cipro and Flagyl that were prescribed in the emergency room. Since then, she developed some diffuse abdominal pain that was mid abdominal, had 4 to 5 bowel movements a day, which were without blood or melena and included what she described as pile of sand granules at the bottom of the bowl with a little bit liquid, some urgency, couple of days of incontinence of stool. She continued Cipro and Flagyl. Her symptoms persisted. She developed severe right lower quadrant pain on Thursday. So, she came to the emergency room. A CT scan showed a right ureteral stone. Today, her abdominal pain is gone. The stone seems to be gone. She is still having gritty, davi stools 2 or 3 times in the last 24 hours. This would not be a classic story for Clostridium difficile colitis. I suspect that initial PCR was a false positive. The diarrheal stools developed after Cipro and Flagyl, which are both good causes of diarrhea or change in bowels. Alternatively, she could have Clostridium difficile colitis after those antibiotics, but her symptoms seem a little atypical for it. CT scan did describe changes of diverticulitis at the time she had her initial bleeding. Those were resolved on a followup CT. 2. Obesity. 3. Osteoarthritis. 4. Diverticulosis. RECOMMENDATIONS: Stop ceftriaxone. We will continue the vancomycin. Follow her symptoms here as she advances her diet and if not improving, endoscopy will be a consideration. HISTORY OF PRESENT ILLNESS: This is a 77-year-old woman who on Thursday developed painless hematochezia that included passage of clots. Because those persisted, she went to the emergency room. A CT scan showed changes of sigmoid diverticulitis. She had stool studies sent that included a positive C. diff PCR. She was prescribed Cipro and Flagyl, which she started taking. The bleeding stopped by the next day, Thursday, but she developed some diffuse abdominal pain and granular stools without any form to them. There was no mucus or blood she saw. She was passing a lot of flatus. She was having 4 to 5 bowel movements a day. In general was not up at night with them. Towards the end of the week while still on liquid diet, she tried some pares and developed vomiting and right lower quadrant pain. Because the pain persisted and was quite severe /, she came to the hospital. Her white count was 12, 000, had another CT abdomen and pelvis that showed the kidney stone on . She was started on tamsulosin. Her pain in the right lower quadrant has improved steadily since yesterday and is down to 7/10 today. She is feeling much more comfortable and her notices that too. She continued to have these granular stools up once last night and 1 episode this morning, slight right lower quadrant and mid abdominal discomfort today. She had more solid breakfast and tolerated it well. No vomiting. PAST MEDICAL HISTORY: 1. Obesity. 2. Osteoarthritis. 3. Diverticulosis. 4. Status post hysterectomy. 5. Status post cholecystectomy. MEDICATIONS: 1. Ceftriaxone 1 g a day. 2. Heparin subcutaneous injection. 3. Magnesium sulfate once. 4. Oxycodone as needed. 5. Vancomycin 4 times a day by mouth. ALLERGIES: PENICILLIN caused hives, SULFA caused vomiting, and then ASPIRIN and TYLENOL. FAMILY HISTORY: Father, sudden cardiac . Mother had a brain aneurysm. SOCIAL HISTORY: She lives with her in [place]. She has no travel or sick contacts. REVIEW OF SYSTEMS: All negative to a 14-point review of systems, except as noted above in the history of present illness. PHYSICAL EXAM: Vital Signs: Temperature 36.7, heart rate 80, respiratory rate 18, blood pressure 111/53, oxygen saturation 94% on room air. In general, she is awake, not in distress. Neurologic: She is oriented x3. Follows all commands. HEENT: There is no conjunctival hemorrhage. Oropharynx without thrush. Neck is supple without mass. Heart is regular rate and rhythm without murmurs, rubs, or gallops. Lungs are clear to auscultation bilaterally. Abdomen : Nondistended. There are bowel sounds present. There is no rebound. There is right and mid abdominal tenderness to deep palpation. There is no left lower quadrant tenderness to palpation. Skin: There is no rash or splinter hemorrhage. LABORATORY DATA: White blood cell count 9, hemoglobin 11, platelets 195. Creatinine is 0.6. CRP 145. ALT 27, bilirubin 0.7. Please see impressions and recommendations as outlined above. Thanks for asking me to see Ms. Polo in consultation. [id number]/[facility] #: [id number] MTDD
--- NOTE | 2017-11-30 16:58 | CONS ---
CONSULTATION REPORT: DATE OF CONSULT: 11/30/17 REQUESTING PHYSICIAN: Dr. Molina. INDICATION: Diarrhea. NARRATIVE: Mrs. Polo is a pleasant 77-year-old female with a history of osteoarthritis who presented to the emergency room with worsening diarrhea and abdominal pain. She did come into the emergency room approximately a week and half ago. At that time, she was found to have a positive C. diff PCR in addition to a CT showing possible diverticulitis. She was started on Cipro and Flagyl at that time. She states that she did feel a little bit better, however completed 10 days and then developed worsening diarrhea and pain, re-presented to the emergency room. In the emergency room, she did have a repeat CT, which showed a nonobstructing right kidney stone and was admitted to the hospital. She was started on vancomycin for presumed C. diff and at this point, she is feeling better. She has been receiving fluids. She states that her pain has pretty much resolved. Her stools are starting to firm up. PAST MEDICAL HISTORY: Significant for osteoarthritis and diverticulosis. PAST SURGICAL HISTORY: Hysterectomy and cholecystectomy. MEDICATIONS: Upon admission including Coenzyme Q10. ALLERGIES: ACETAMINOPHEN, PENICILLIN, ASPIRIN, TYLENOL, and SULFA. PHYSICAL EXAM: Temperature is 98, blood pressure is 111/53, pulse is 79, respiratory rate of 18. General: Well-appearing female, in no apparent distress. Alert, oriented, pleasant, and fluent. HEENT: Mucous membranes are moist without lesions, ulcers, or exudate. Neck is supple. Trachea is midline. Head is normocephalic, atraumatic. Heart: Regular rate and rhythm. Lungs: Clear to auscultation. Abdomen: Positive bowel sounds. Soft. She is slightly tender on the right side. No rebound. No guarding. No masses are felt. Skin is warm and dry. Musculoskeletal: No CVA or spinal tenderness to palpation. DIAGNOSTIC STUDIES/LAB DATA: Labs showed white count is 9.8, platelets of 195, hemoglobin is 11.9. BUN is 10, creatinine is 0.63. She has normal liver function tests. CT from 2 days ago shows diverticulosis. ASSESSMENT AND PLAN: A 77-year-old female with diarrhea and abdominal pain. This could be an infectious etiology such as Clostridium difficile. She is already on vanco and improving. I would recommend we just simply continue with it. Diarrhea may have been related to her Cipro or Flagyl that she had been on in the past. At this point, since she is improving, she is afebrile, her pain has resolved and her stools are starting to firm up, I will continue to advance her diet and continue with vancomycin. The patient has requested followup with Dr. Castaneda. I think that this is reasonable. They have his new office phone number and can call him to make the appointment in a few weeks for now. [id number]/[facility] #: [id number] CHRISSY
[2017-11-30] MEDS: Tamsulosin CAP* 0.4 MG PO SCH (21:42)
[2017-12-01] MEDS: NS 0.9% 1000 ML* 1,000 ML IV SCH (02:24)
[2017-12-01] MEDS: Heparin VIAL(*) 5000 UNITS/ML VIAL (FIVE THOUSAND) SUBCUT SCH (05:33)
[2017-12-01 07:27] LABS: ABS Basophils 0 10^3/ul (0-0.2); ABS Eosinophils 0.2 10^3/ul (0-0.6); ABS Lymphocytes 1.3 10^3/ul (1.0-4.8); ABS Monocytes 0.6 10^3/ul (0-0.8); ABS Neutrophils 5.6 10^3/ul (1.5-7.7); ABS Nucleated RBC 0 10^3/ul; Hematocrit 36 % (35-47); Hemoglobin 12.3 g/dl (12.0-16.0); Lymphocyte % 17.2 % (25-47); Mean Corpuscular HGB Conc 34 g/dl (31-36); Mean Corpuscular Hemoglobin 30 pg (27-31); Mean Corpuscular Volume 88 fL (80-97); Mean Platelet Volume 7.8 um3 (7.4-10.4); Nucleated Red Blood Cells % 0; Platelet Count 208 10^3/ul (150-450); Red Blood Count 4.13 10^6/ul (4.00-5.40); Red Cell Distribution Width 15 % (10.5-15); White Blood Count 7.8 10^3/ul (3.5-10.8)
[2017-12-01] MEDS: Vancomycin CAP* 125 MG CAP PO SCH ×2 (07:40→12:08)
[2017-12-01 08:00] LABS: EGFR Non-African American 99.1 (>60)
[2017-12-01 11:47] VITALS: BP 121/64
== END 2017-12-01 13:35 | disposition home or self-care (01) | DRG 690 ==
LOC: ED 14:41 → MED 23:04 → OBSVTOIN 11-29 15:12
PROVIDERS: ADMIT Hospitalist; ATTEND Internal Medicine
DX: N39.0 Urinary tract infection, site not specified (principal); K57.32 Diverticulitis of large intestine without perforation or abscess without bleeding; A04.72 Enterocolitis due to Clostridium difficile, not specified as recurrent; B95.2 Enterococcus as the cause of diseases classified elsewhere; E83.42 Hypomagnesemia; R19.7 Diarrhea, unspecified; M16.12 Unilateral primary osteoarthritis, left hip; R03.0 Elevated blood-pressure reading, without diagnosis of hypertension; Z79.899 Other long term (current) drug therapy; Z88.6 Allergy status to analgesic agent; Z88.0 Allergy status to penicillin; Z88.2 Allergy status to sulfonamides; Z82.49 Family history of ischemic heart disease and other diseases of the circulatory system; Z80.0 Family history of malignant neoplasm of digestive organs; Z80.42 Family history of malignant neoplasm of prostate
CPT/HCPCS: 36415; 74177; 76775; 80048; 80053; 81003; 81015; 82272; 83605; 83690; 83735; 85025; 85610; 85730; 86140; 87040; 87086; 99285; A9270-GY; J0696; J1644; J2270; J2405; J3475; Q9967

== ENCOUNTER 2021-08-23 05:50 | Observation (INO) ==
[2021-08-23] MEDS ORDERED: Buffered Lidocaine 1% SYRIN 1 ml INTRADERM ONE (06:00)
[2021-08-23] MEDS ORDERED: Lactated Ringers 1000 ml BAG 1,000 ML IV SCH (06:00)
[2021-08-23] MEDS ORDERED: Clindamycin 900 MG/D5W BAG 900 MG/50 ML BAG IVPB ONE (06:13)
[2021-08-23] MEDS ORDERED: Ondansetron 4 mg VIAL 2 MG/ML 2 ml VIAL IV PRN ×2 (07:13→08:34)
[2021-08-23] MEDS ORDERED: HYDROmorphone 1 MG/1 ML SYRINGE IV PRN (07:13)
[2021-08-23] MEDS ORDERED: Rocuronium 50 mg VIAL 10 mg/ml 5 ml VIAL (50 mg) ONE (07:13)
[2021-08-23] MEDS ORDERED: fentaNYL 100 mcg/2 ml 50 MCG/ML VIAL IV PRN (07:13)
[2021-08-23] MEDS ORDERED: Naloxone 0.4 mg VIAL 0.4 mg/ml 1 ml VIAL IV PRN (07:13)
[2021-08-23] MEDS ORDERED: DiMENhydriNATE IV 50 mg/ml 1 ml VIAL IV PUSH PRN (07:13)
[2021-08-23] MEDS ORDERED: fentaNYL 250 mcg/5 ml 50 MCG/ML 5 ml VIAL (250 MCG) ONE (07:13)
[2021-08-23] MEDS ORDERED: Propofol 10 MG/ML 20 ML BTL ONE (07:16)
[2021-08-23] MEDS ORDERED: ROPIVACAINE 5 MG/ML 30 ML BTL (0.5%) ONE (07:17)
[2021-08-23] MEDS ORDERED: Ondansetron 4 mg VIAL 2 MG/ML 2 ml VIAL ONE (07:55)
[2021-08-23] MEDS ORDERED: Dexamethasone IV 4 MG/ML VIAL 1 ml VIAL ONE (07:55)
[2021-08-23] MEDS ORDERED: HYDROmorphone 0.5 MG/0.5 ML SYRINGE ONE (07:55)
[2021-08-23] MEDS ORDERED: Lactulose 30 ml UDC PO PRN (08:34)
[2021-08-23] MEDS ORDERED: Ondansetron ODT 4 mg TAB 4 MG TAB PO PRN (08:34)
[2021-08-23] MEDS ORDERED: Morphine 2 MG/ML SYRINGE IV PRN (08:34)
[2021-08-23] MEDS ORDERED: Magnesium Hydroxide LIQ 30 ML UDC PO PRN (08:34)
[2021-08-23] MEDS ORDERED: diPHENhydraMINE IV 50 MG/ML 1 ml VIAL (BENADRYL) IV PRN (08:34)
[2021-08-23] MEDS ORDERED: diPHENhydraMINE 25 mg TAB PO PRN (08:34)
[2021-08-23] MEDS ORDERED: ceFAZolin 1 GM ADVAN 1 GM in NS 0.9% 50 ML 50 ML IVPB SCH (09:00)
[2021-08-23] MEDS: Lactated Ringers 1000 ml BAG 1,000 ML IV SCH (12:19)
[2021-08-23] MEDS: Magnesium Hydroxide LIQ 30 ML UDC PO SCH ×2 (14:35→20:59)
[2021-08-23] MEDS: Vitamin THERAPEUTIC TAB PO SCH (14:42)
[2021-08-23] MEDS: Clindamycin 600 MG/D5W BAG 600 MG/50 ML BAG IV SCH (15:46)
[2021-08-24] MEDS: Clindamycin 600 MG/D5W BAG 600 MG/50 ML BAG IV SCH ×2 (00:09→08:26)
[2021-08-24] MEDS: Lactated Ringers 1000 ml BAG 1,000 ML IV SCH (00:09)
[2021-08-24 05:25] LABS: Hematocrit 33 % (35-47); Hemoglobin 11.5 g/dL (12.0-16.0); Platelet Count 249 10^3/uL (150-450)
[2021-08-24 06:00] LABS: Calcium 8.3 mg/dL (8.6-10.3); Potassium 4.4 mmol/L (3.5-5.0); eGFR CKD-EPI 85.9 (>60)
[2021-08-24] MEDS: Vitamin THERAPEUTIC TAB PO SCH (08:25)
[2021-08-24] MEDS: Magnesium Hydroxide LIQ 30 ML UDC PO SCH (08:25)
[2021-08-24 11:22] VITALS: BP 115/62
== END 2021-08-24 13:20 | disposition home or self-care (01) ==
LOC: SSU → AA 05:50 → INTOOBSV 05:50
PROVIDERS: ADMIT Orthopaedic Surgery Adult Reconstructive Orthopaedic Surgery; ATTEND Orthopaedic Surgery Adult Reconstructive Orthopaedic Surgery